=== PATIENT | female | born 1985 | race African-American/Black ===

== ENCOUNTER 2023-01-23 11:51 | Day surgery (SDC) | payer BC ==
[2023-01-23] MEDS ORDERED: Acetaminophen 500 MG TAB ONE (12:02)
[2023-01-23] MEDS ORDERED: Iron Sucrose Complex 500 MG in Sodium Chloride 0.9% 250 ML 250 ML IVPB SCH (12:15)
== END 2023-01-23 16:30 | disposition home or self-care (01) ==
LOC: CSHSDC/OP 11:51
PROVIDERS: ATTEND Family Medicine
DX: O99.019 Anemia complicating pregnancy, unspecified trimester (principal); D64.9 Anemia, unspecified; Z3A.00 Weeks of gestation of pregnancy not specified
CPT/HCPCS: J1756; J7050